=== PATIENT | male | born 1990 | race Caucasian/White ===

== ENCOUNTER 2019-04-13 13:30 | Emergency (ER) | payer SELFPAY ==
--- NOTE | 2019-04-13 14:07 | EDM.PDOC ---
ED HPI GENERAL MEDICAL PROBLEM - General Chief Complaint: Headache Stated Complaint: HEADACHE Time Seen by Provider: 04/13/19 14:01 Source of Information: Reports: Patient, RN Notes Reviewed History Limitations: Reports: No Limitations - History of Present Illness INITIAL COMMENTS - FREE TEXT/NARRATIVE: Patient is a 29-year-old male who presents to the ED for evaluation of a headache. He states this has been present for around the last week, and while he is in the shower today he appreciated some swelling in the back of his head that he does not think was there before. Patient notes that he frequently gets headaches and has been taking 800 mg ibuprofen for this but has not been providing much relief. Patient states he comes to the ER due to the swelling appreciated today. He notes he is somewhat light sensitive but not sound sensitive with this. He does use caffeine, one cup of coffee in the morning and a 20 ounce soda daily. He denies any alcohol, cigarette or drug use, but does vape. The patient states that he got somewhat dizzy with a headache as well today. He has not had any cough or cold like symptoms or any sinus congestion. He further denies any nausea or vomiting, shortness of breath, or chest pain. He states that his headache is behind his eyes and in his temples. Headache Pain Score (Numeric/FACES): 6 - Related Data Allergies Allergy/AdvReac Type Severity Reaction Status Date / Time Penicillins AdvReac Diarrhea Verified 04/13/19 13:57 Home Meds: Home Meds . [No Known Home Meds] 04/13/19 [History] Past Medical History HEENT History: Reports: None Cardiovascular History: Reports: None Respiratory History: Reports: None Genitourinary History: Reports: None Musculoskeletal History: Reports: Fracture Neurological History: Reports: Concussion, Headaches, Chronic Psychiatric History: Reports: None Endocrine/Metabolic History: Reports: None Hematologic History: Reports: None Immunologic History: Reports: None Oncologic (Cancer) History: Reports: None Dermatologic History: Reports: None - Infectious Disease History Infectious Disease History: Reports: None - Past Surgical History Head Surgeries/Procedures: Reports: None GI Surgical History: Reports: Appendectomy Other GI Surgeries/Procedures: Surgery 2 weeks after appendectomy to remove infection. Social & Family History - Caffeine Use Caffeine Use: Reports: Coffee - Recreational Drug Use Recreational Drug Use: No ED ROS GENERAL - Review of Systems Review Of Systems: See Below Constitutional: Denies: Fever, Chills, Weakness, Fatigue HEENT: Reports: No Symptoms Respiratory: Denies: Shortness of Breath Cardiovascular: Denies: Chest Pain Endocrine: Reports: No Symptoms GI/Abdominal: Denies: Abdominal Pain, Nausea, Vomiting : Reports: No Symptoms Musculoskeletal: Reports: No Symptoms Skin: Reports: No Symptoms Neurological: Reports: Dizziness, Headache. Denies: Confusion, Pre-Existing Deficit, Syncope, Difficulty Walking, Gait Disturbance Psychiatric: Reports: No Symptoms Hematologic/Lymphatic: Reports: No Symptoms Immunologic: Reports: No Symptoms - Physical Exam Exam: See Below Exam Limited By: No Limitations General Appearance: Alert, WD/WN, No Apparent Distress Eye Exam: Bilateral Eye: EOMI, Normal Inspection, PERRL Ears: Normal External Exam, Normal TMs Nose: Normal Inspection, Normal Mucosa, No Blood Throat/Mouth: Normal Inspection, Normal Lips, Normal Teeth, Normal Gums, Normal Oropharynx, Normal Voice, No Airway Compromise Head Exam: Atraumatic, Normocephalic Neck: Normal Inspection, Supple, Non-Tender, Full Range of Motion Respiratory/Chest: No Respiratory Distress, Lungs Clear, Normal Breath Sounds, No Accessory Muscle Use, Chest Non-Tender Cardiovascular: Normal Peripheral Pulses, Regular Rate, Rhythm, No Murmur GI/Abdominal: Normal Bowel Sounds, Soft, Non-Tender, No Distention, No Mass Neuro Exam (Abbreviated): Alert, Oriented, CN II-XII Intact (grossly), Normal Cognition, Normal Gait, No Motor/Sensory Deficits Extremities: Normal Inspection, Normal Capillary Refill Psychiatric: Normal Affect, Normal Mood Skin Exam: Warm, Dry, Intact, Normal Color, No Rash Course - Vital Signs Last Recorded V/S: Last Vital Signs Temp 98.5 F 04/13/19 13:54 Pulse 70 04/13/19 13:54 Resp 16 04/13/19 13:54 BP 146/100 H 04/13/19 13:54 Pulse Ox 99 04/13/19 13:54 - Orders/Labs/Meds Orders: Active Orders 24 hr Category Date Time Status Peripheral IV Care [RC] . DIRECTED Care 04/13/19 14:32 Ordered Sodium Chloride 0.9% @ 125 MLS/HR (1000ml Bag) Med 04/13/19 14:45 Ordered Sodium Chloride 0.9% [Normal Saline] 1,000 ml IV ASDIRECTED Sodium Chloride 0.9% [Saline Flush] Med 04/13/19 14:32 Ordered 10 ml FLUSH ASDIRECTED PRN Peripheral IV Insertion Adult [OM.PC] Routine Oth 04/13/19 14:32 Ordered Medication Orders Sodium Chloride (Normal Saline) 1,000 mls @ 125 mls/hr IV ASDIRECTED LUAN Last Admin: 04/13/19 15:08 Dose: 125 mls/hr Sodium Chloride (Saline Flush) 10 ml FLUSH ASDIRECTED PRN PRN Reason: Keep Vein Open Last Admin: 04/13/19 15:06 Dose: 10 ml Meds: Medications Generic Name Dose Route Start Last Admin Trade Name Freq PRN Reason Stop Dose Admin Sodium Chloride 1,000 mls @ 125 mls/hr 04/13/19 14:45 04/13/19 15:08 Normal Saline IV 125 mls/hr ASDIRECTED LUAN Administration Sodium Chloride 10 ml 04/13/19 14:32 04/13/19 15:06 Saline Flush FLUSH 10 ml ASDIRECTED PRN Administration Keep Vein Open Discontinued Medications Generic Name Dose Route Start Last Admin Trade Name Freq PRN Reason Stop Dose Admin Diphenhydramine HCl 25 mg 04/13/19 14:32 04/13/19 15:06 Benadryl IVPUSH 04/13/19 14:33 25 mg ONETIME ONE Administration Ketorolac Tromethamine 30 mg 04/13/19 14:32 04/13/19 15:06 Toradol IVPUSH 04/13/19 14:33 30 mg ONETIME ONE Administration Metoclopramide HCl 10 mg 04/13/19 14:32 04/13/19 15:06 Reglan IVPUSH 04/13/19 14:33 10 mg ONETIME ONE Administration - Re-Assessments/Exams Free Text/Narrative Re-Assessment/Exam: 04/13/19 15:24 Patient presents to the ED for the evaluation of a headache. Did order some IV fluids, 30 mg IV Toradol, 25 mg IV Benadryl, and 10 mg Reglan for initial management. As for the swelling on the back of his head, I did not appreciate anything that seemed worrisome at today's visit. Will reassess the patient after the medications have been given some time to work. 04/13/19 16:16 Patient was reassessed at bedside, and states that he is feeling much better and would like to be discharged home. We'll discharge home with general recommendations. Departure - Departure Time of Disposition: 16:16 Disposition: Home, Self-Care 01 Condition: Fair Clinical Impression: Headache around the eyes - Discharge Information *PRESCRIPTION DRUG MONITORING PROGRAM REVIEWED*: No *COPY OF PRESCRIPTION DRUG MONITORING REPORT IN PATIENT TRA: No Referrals: PCP,Not In Area [Primary Care Provider] - Forms: ED Department Discharge Additional Instructions: You were evaluated in the ED today for your headache. You were given some IV medications and IV fluid for management of this, this did seem to help relieve your symptoms. Please try to go home and rest in a dark quiet room and keep well hydrated. Please return to the ED if your symptoms should change or worsen. - My Orders Last 24 Hours: My Active Orders 04/13/19 14:32 Peripheral IV Care [RC] . DIRECTED Sodium Chloride 0.9% [Saline Flush] 10 ml FLUSH ASDIRECTED PRN Peripheral IV Insertion Adult [OM.PC] Routine 04/13/19 14:45 Sodium Chloride 0.9% @ 125 MLS/HR (1000ml Bag) Sodium Chloride 0.9% [Normal Saline] 1,000 ml IV ASDIRECTED - Assessment/Plan Last 24 Hours: My Active Orders 04/13/19 14:32 Peripheral IV Care [RC] . DIRECTED Sodium Chloride 0.9% [Saline Flush] 10 ml FLUSH ASDIRECTED PRN Peripheral IV Insertion Adult [OM.PC] Routine 04/13/19 14:45 Sodium Chloride 0.9% @ 125 MLS/HR (1000ml Bag) Sodium Chloride 0.9% [Normal Saline] 1,000 ml IV ASDIRECTED
[2019-04-13] MEDS ORDERED: Sodium Chloride 0.9% 10 ML Syringe FLUSH PRN (14:32)
[2019-04-13] MEDS ORDERED: Ketorolac 30 MG/ML SDV IVPUSH ONE (14:32)
[2019-04-13] MEDS ORDERED: diphenhydrAMINE 50 MG/ML SDV IVPUSH ONE (14:32)
[2019-04-13] MEDS ORDERED: Metoclopramide 10 MG/2 ML SDV IVPUSH ONE (14:32)
[2019-04-13] MEDS ORDERED: Sodium Chloride 0.9% 1,000 ML IV SCH (14:45)
== END 2019-04-13 16:23 | disposition home or self-care (01) ==
LOC: JD.ED 13:30
DX: R51 Headache (principal); Z88.0 Allergy status to penicillin
CPT/HCPCS: 96361; 96374; 96375; 99283; J1200; J1885; J2765; J7040; 99284

== ENCOUNTER 2021-09-28 14:25 | Emergency (ER) | payer OTHER | END 2021-09-28 15:00 | LOC: JD.ED 14:25 | DX: Z53.21 Procedure and treatment not carried out due to patient leaving prior to being seen by health care provider (principal) ==